=== PATIENT | female | born 1975 | race Hispanic/Latino ===

== ENCOUNTER 2018-04-15 14:54 | Emergency (ER) | payer SELFPAY ==
[2018-04-15] MEDS ORDERED: TETANUS & DIPHTHERIA TOX,ADULT 0.5 ML VIAL ONE (16:17)
[2018-04-15] MEDS ORDERED: BUPIVACAINE 0.5% PF 10 ML VIAL ONE (16:17)
[2018-04-15] MEDS ORDERED: LIDOCAINE 1% MPF 5 ML VIAL ONE (16:17)
--- NOTE | 2018-04-15 16:29 | RAD REPORT ---
EXAM DESCRIPTION: RAD -Hand Left 3 View - 04/15/2018 4:20 pm CLINICAL HISTORY: Left hand pain status post injury FINDINGS: No fracture or dislocation is seen. A radiopaque foreign body is not seen
--- NOTE | 2018-04-15 16:39 | EDPHYS ---
Physician Documentation [facility] Name: Felix Li Age: 42 yrs Sex: Female : 1975 Arrival Date: 04/15/2018 Time: 14:57 Bed Treatment Private MD: None, None ED Physician Fabian Jain HPI: 04/15 16:10 This 42 yrs old Female presents to ER via Ambulatory with complaints of cp Laceration - FINGER. 16:10 The patient or guardian reports injury, a laceration, irregular, avulsion of skin. The cp complaints affect the distal phalanx of left middle finger. 16:10 Context: The problem was sustained at home, resulted from use of knife. cp 16:10 Onset: The symptoms/episode began/occurred just prior to arrival. Associated signs and cp symptoms: Pertinent negatives: cyanosis distally, numbness distally. Severity of symptoms: in the emergency department the symptoms are unchanged, despite home interventions. 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 - Social history:: Smoking status: Patient/guardian denies using tobacco. - Ebola Screening: : Patient negative for fever greater than or equal to 101.5 degrees Fahrenheit, and additional compatible Ebola Virus Disease symptoms Patient denies exposure to infectious person Patient denies travel to an Ebola-affected area in the 21 days before illness onset No symptoms or risks identified at this time. ROS: 16:15 Constitutional: Negative for body aches, chills, fever, poor PO intake. cp 16:15 Eyes: Negative for injury, pain, redness, and discharge. cp 16:15 Cardiovascular: Negative for chest pain. 16:15 Respiratory: Negative for cough, shortness of breath. 16:15 Abdomen/GI: Negative for abdominal pain, nausea, vomiting, and diarrhea. 16:15 Skin: Positive for avulsion, of the partial tip of left middle finger. 16:15 Neuro: Negative for numbness, tingling. 16:15 All other systems are negative. Exam: 16:20 Constitutional: The patient appears in no acute distress, alert, awake, well developed, cp well nourished. 16:20 Head/Face: Normocephalic, atraumatic. cp 16:20 Eyes: Periorbital structures: appear normal, Conjunctiva: normal, no exudate, no injection, Lids and lashes: appear normal, bilaterally. 16:20 ENT: External ear(s): are unremarkable, Nose: is normal, Mouth: is normal, Posterior pharynx: is normal, airway is patent. 16:20 Chest/axilla: Inspection: normal. 16:20 Cardiovascular: Rate: normal. 16:20 Respiratory: the patient does not display signs of respiratory distress, Respirations: normal, no use of accessory muscles, no retractions, no splinting, no tachypnea. 16:20 Abdomen/GI: Exam negative for discomfort, distension, guarding, Inspection: abdomen appears normal. 16:20 Musculoskeletal/extremity: Tendon exam: specific tendon testing normal through active and passive range of motion 16:20 Skin: injury, avulsion(s), a small of the partial distal tip of left middle finger, that can be described as clean, irregular, with mild bleeding. 16:20 Neuro: Sensation: 2 point discrimination is normal. Vital Signs: 15:03 BP 133 / 85; Pulse 68; Resp 15; Temp 98.4; Pulse Ox 99% on R/A; Weight 63.5 kg; Height ch 5 ft. 2 in. (157.48 cm); Pain 6/10; 15:03 Body Mass Index 25.61 (63.50 kg, 157.48 cm) MDM: 16:00 Patient medically screened. cp 16:30 Differential diagnosis: open fracture, closed fracture, simple laceration, skin cp avulsion. Test interpretation: by ED physician or midlevel provider: plain radiologic studies. 16:37 Data reviewed: vital signs, nurses notes, radiologic studies, plain films. 04/15 16:08 Order name: XRAY Hand LEFT 3 View; Complete Time: 16:34 cp 04/15 16:34 Interpretation: Report reviewed. 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 Exp: ss 05/15/2020. Lot #: [id number]. } Route: IM; Site: right deltoid; 17:08 Follow up: Response: No adverse reaction ss 16:30 Drug: Lidocaine (1 %) 5 mg {Note: administered to affected area by KAREN Bruno, ss approx 2 mL.} Route: Infiltration; 16:30 Drug: Marcaine (0.5 %) 5 ml {Note: administered to affected area by KAREN Bruno, ss approx 2 mL.} Volume: 10 ml; Route: Infiltration; Disposition: 04/15/18 16:38 Discharged to Home. Impression: Laceration without foreign body of left middle finger with damage to nail. - Condition is Stable. - Discharge Instructions: Deep Skin Avulsion. - Prescriptions for Keflex 500 mg Oral Capsule - take 1 capsule by ORAL route every 8 hours for 10 days; 30 capsule. Tylenol- Codeine #3 300-30 mg Oral Tablet - take 2 tablets by ORAL route every 6 hours As needed; 10 tablet. - Work release form, Medication Reconciliation Form, Thank You Letter, Antibiotic Education, Prescription Opioid Use form. - Follow up: Private Physician; When: 48 Hours; Reason: Wound Recheck. - Problem is new. - Symptoms have improved. Addendum: 04/18/2018 10:12 Co-signature as Attending Physician, Fabian Jain MD I agree with the assessment and k dr plan of care. Signatures: Dispatcher [employer] EDMS Madyson Lorenz RN RN Fabian Jain MD MD [facility] Nadine Brown RN RN Zacarias Reid PA PA cp Corrections: (The following items were deleted from the chart) 04/15 17:14 16:38 04/15/2018 16:38 Discharged to Home. Impression: Laceration without foreign body ss of left middle finger with damage to nail. Condition is Stable. Forms are Medication Reconciliation Form, Thank You Letter, Antibiotic Education, Prescription Opioid Use. Follow up: Private Physician; When: 48 Hours; Reason: Wound Recheck. Problem is new. Symptoms have improved. cp
--- NOTE | 2018-04-15 16:39 | ER ---
Nurse's Notes [facility] Name: Felix Li Age: 42 yrs Sex: Female : 1975 Arrival Date: 04/15/2018 Time: 14:57 Bed Treatment Private MD: None, None Diagnosis: Laceration without foreign body of left middle finger with damage to nail Presentation: 04/15 15:03 Presenting complaint: Patient states: cut finger with a knife about 1400. Transition of care: patient was not received from another setting of care. Complicating Factors: There are no complicating factors for this patient. Onset of symptoms was April 15, 2018 at 14:00. Risk Assessment: Do you want to hurt yourself or someone else? Patient reports no desire to harm self or others. Initial Sepsis Screen: Does the patient meet any 2 criteria? No. Patient's initial sepsis screen is negative. Does the patient have a suspected source of infection? No. Patient's initial sepsis screen is negative. Care prior to arrival: None. 15:03 Method Of Arrival: Ambulatory 15:03 Acuity: ALBERT 5 Triage Assessment: 15:03 General: Appears in no apparent distress. comfortable, Behavior is calm, cooperative, ch appropriate for age. Pain: Complains of pain in palmar aspect of distal phalanx of left middle finger. 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 - Social history:: Smoking status: Patient/guardian denies using tobacco. - Ebola Screening: : Patient negative for fever greater than or equal to 101.5 degrees Fahrenheit, and additional compatible Ebola Virus Disease symptoms Patient denies exposure to infectious person Patient denies travel to an Ebola-affected area in the 21 days before illness onset No symptoms or risks identified at this time. Screenin:04 Abuse screen: Denies threats or abuse. Denies injuries from another. Nutritional ss screening: No deficits noted. Tuberculosis screening: Has had TB. Fall Risk None identified. Assessment: 16:04 General: Appears in no apparent distress. comfortable, Behavior is calm, cooperative. ss Pain: Complains of pain in left middle fingernail Pain currently is 6 out of 10 on a pain scale. Quality of pain is described as burning, tender, Pain began 1300 today Is continuous. Neuro: Level of Consciousness is awake, alert, obeys commands, Oriented to person, place, time, situation. Cardiovascular: Capillary refill < 3 seconds is brisk in bilateral fingers. Respiratory: Airway is patent Respiratory effort is even, unlabored, Respiratory pattern is regular, symmetrical. GI: No signs and/or symptoms were reported involving the gastrointestinal system. EENT: Nares are clear Oral mucosa is moist. Derm: Skin is pink, warm \T\ dry. Musculoskeletal: Circulation, motion, and sensation intact. Range of motion: intact in all extremities, Swelling absent. Injury Description: No bleeding noted at this time. Vital Signs: 15:03 BP 133 / 85; Pulse 68; Resp 15; Temp 98.4; Pulse Ox 99% on R/A; Weight 63.5 kg; Height ch 5 ft. 2 in. (157.48 cm); Pain 6/10; 15:03 Body Mass Index 25.61 (63.50 kg, 157.48 cm) ch ED Course: 14:57 Patient arrived in ED. sb2 14:58 None, None is Private Physician. sb2 15:03 Triage completed. ch 15:03 Arm band placed on left wrist. Patient placed in waiting room. ch 15:59 Zacarias Reid PA is PHCP. cp 15:59 Fabian Jain MD is Attending Physician. cp 16:04 Patient has correct armband on for positive identification. Call light in reach. ss 16:11 Nadine Brown, KRYSTINA is Primary Nurse. ss 16:19 X-ray completed. Portable x-ray completed in exam room. Patient tolerated procedure ml well. 16:20 XRAY Hand LEFT 3 View In Process Unspecified. EDMS 17:09 No provider procedures requiring assistance completed. Patient did not have IV access ss during this emergency room visit. irrigated wound to finger with 250 ml NS. Wound care: to avulsion located on left middle fingernail was cleaned with soap and water, irrigated with normal saline, dressed with 4X4s, Kerlix, Surgicel, Patient tolerated well. 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 Exp: ss 05/15/2020. Lot #: [id number]. } Route: IM; Site: right deltoid; 17:08 Follow up: Response: No adverse reaction 16:30 Drug: Lidocaine (1 %) 5 mg {Note: administered to affected area by KAREN Bruno, ss approx 2 mL.} Route: Infiltration; 16:30 Drug: Marcaine (0.5 %) 5 ml {Note: administered to affected area by KAREN Bruno, approx 2 mL.} Volume: 10 ml; Route: Infiltration; Outcome: 16:38 Discharge ordered by MD. manan 17:09 Discharged to home ambulatory, with family. 17:09 Condition: good 17:09 Discharge instructions given to patient, family, Instructed on discharge instructions, follow up and referral plans. medication usage, wound care, Demonstrated understanding of instructions, follow-up care, medications, wound care, Prescriptions given X 2. 17:14 Patient left the ED. Signatures: Dispatcher [employer] EDMS Madyson Lorenz, RN Magali Sorto ch, Shelby, RN RN ss Page, Corey, PA PA cp Billeau, Sheri sb2
== END 2018-04-15 17:14 | disposition home or self-care (01) ==
LOC: ER 14:54
DX: S61.313A Laceration without foreign body of left middle finger with damage to nail, initial encounter (principal); W26.0XXA Contact with knife, initial encounter; Y93.9 Activity, unspecified; Y92.009 Unspecified place in unspecified non-institutional (private) residence as the place of occurrence of the external cause; Z23 Encounter for immunization
CPT/HCPCS: 90714; 99284

== ENCOUNTER 2021-01-14 20:38 | Emergency (ER) | payer SELFPAY ==
--- OUTSIDE RECORDS SUMMARY | 2021-01-14 20:41 | XMS REPORT | Continuity of Care Document ---
:1975 Author Organization [facility] t Address [address] [place] [address] [address] [place] [address] Care Team Providers Name Role Phone Imani Bowman Attending Clinician Problems This patient has no known problems. Allergies, Adverse Reactions, Alerts This patient has no known allergies or adverse reactions. Medications This patient has no known medications. Procedures This patient has no known procedures. 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
[2021-01-14] MEDS ORDERED: LIDOCAINE 1% MPF 5 ML VIAL ONE (21:45)
[2021-01-14] MEDS ORDERED: TETANUS & DIPHTHERIA TOX,ADULT 0.5 ML VIAL ONE (21:54)
--- NOTE | 2021-01-14 22:05 | ER ---
Nurse's Notes [facility] Name: Felix Moreno Age: 45 yrs Sex: Female : 1975 Arrival Date: 01/14/2021 Time: 20:41 Bed 14 Private MD: Diagnosis: Laceration, Left Wrist Presentation: 01/14 21:02 Chief complaint: Patient states: Pt was reaching into kitchen cabinet and accidently vg1 cut Left Wrist with the blade of a supervisor matrix, occurred about 30 minutes ago. Pt states left fifth digit feels numb. Pt wrist bandaged in triage. Bleeding controlled. Chief complaint:. Chief complaint:. Coronavirus screen: Client denies travel out of the [place] in the last 14 days. Ebola Screen: Patient negative for fever greater than or equal to 101.5 degrees Fahrenheit, and additional compatible Ebola Virus Disease symptoms. Initial Sepsis Screen: Does the patient meet any 2 criteria? No. Patient's initial sepsis screen is negative. Does the patient have a suspected source of infection? No. Patient's initial sepsis screen is negative. Risk Assessment: Do you want to hurt yourself or someone else? Patient reports no desire to harm self or others. Onset of symptoms was January 14, 2021. 21:02 Method Of Arrival: Ambulatory vg1 21:02 Acuity: ALBERT 3 vg1 22:21 Complicating Factors: There are no complicating factors for this patient. [facility] Triage Assessment: 21:06 General: Appears in no apparent distress. comfortable, Behavior is calm, cooperative. vg1 Pain: Denies pain. Cardiovascular: Capillary refill < 3 seconds in left fingers. Injury Description: Laceration sustained to palmar aspect of left wrist is. 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 - Social history:: Smoking status: Patient denies any tobacco usage or history of. Screenin:40 Abuse screen: Denies threats or abuse. Denies injuries from another. [facility] 21:40 Nutritional screening: No deficits noted. Tuberculosis screening: No symptoms or risk jm8 factors identified. Fall Risk None identified. Assessment: 21:40 General: Appears in no apparent distress. comfortable, Behavior is calm, cooperative, jm8 appropriate for age. Pain: Denies pain. Neuro: No deficits noted. Level of Consciousness is awake, alert, obeys commands, Oriented to person, place, time. Cardiovascular: No deficits noted. Respiratory: No deficits noted. Airway is patent Trachea midline Respiratory effort is even, unlabored. GI: No deficits noted. No signs and/or symptoms were reported involving the gastrointestinal system. : No deficits noted. No signs and/or symptoms were reported regarding the genitourinary system. EENT: No deficits noted. No signs and/or symptoms were reported regarding the EENT system. Derm: No deficits noted. No signs and/or symptoms reported regarding the dermatologic system. Musculoskeletal: No deficits noted. Injury Description: Laceration sustained to left wrist is clean, was sustained 30-60 minutes ago. is bleeding a small amount. Vital Signs: 21:02 BP 141 / 103; Pulse 90; Resp 16; Temp 97.5; Pulse Ox 100% ; Weight 64.86 kg; Height 4 vg1 ft. 11 in. (149.86 cm); Pain 0/10; 22:22 BP 124 / 85; Pulse 84; Resp 16; Pulse Ox 99% on R/A; jm8 21:02 Body Mass Index 28.88 (64.86 kg, 149.86 cm) 1 ED Course: 20:41 Patient arrived in ED. mr 21:05 Triage completed. vg1 21:06 Arm band placed on. vg1 21:13 Pedro Pablo Puente MD is Attending Physician. health system 21:40 Patient did not have IV access during this emergency room visit. 8 21:40 Assist provider with laceration repair on left wrist that was between 2.6 to 7.5 cm 8 using sutures. Set up tray. Performed by Pedro Pablo Puente MD Dressed with 4X4s, Neosporin, Patient tolerated well. 22:03 Joel Baugh MD is Referral Physician. health system 22:21 Patient has correct armband on for positive identification. Bed in low position. Call jm8 light in reach. Side rails up X2. Administered Medications: 21:28 CANCELLED (Duplicate Order): Tetanus-Diphtheria Toxoid Adult 0.5 ml IM once health system 21:36 Drug: Lidocaine (1 %) 5 mg Route: Infiltration; 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 Exp: jm8 09/11/2021. Lot #: [id number]. } Route: IM; Site: right deltoid; 22:22 Follow up: Response: No adverse reaction [facility] 22:14 Drug: Bacitracin Ointment (500 unit/g) 1 application Route: Topical; Site: wound; [facility] Outcome: 22:04 Discharge ordered by . health system 22:21 Discharged to home ambulatory. [facility] 22:21 Condition: good 22:21 Discharge instructions given to patient, Instructed on discharge instructions, follow up and referral plans. wound care, Demonstrated understanding of instructions, follow-up care, wound care. 22:23 Patient [address] the ED. [facility] Signatures: Bela Jeronimo Victoria RN RN vg1 Pedro Pablo Puente MD MD health system Lukasz Reddy RN RN [facility]
--- NOTE | 2021-01-14 22:05 | EDPHYS ---
Physician Documentation [facility] Name: Felix Moreno Age: 45 yrs Sex: Female : 1975 Arrival Date: 01/14/2021 Time: 20:41 Bed 14 Private MD: ED Physician Pedro Pablo Puente HPI: 01/14 21:55 This 45 yrs old Female presents to ER via Ambulatory with complaints of mh7 Laceration To Arm. 21:55 The patient has a laceration related to: cooking, from a sharp metal object, occurred mh7 at home, and there are no complicating factors. The injury was accidental. The laceration(s) is(are) located on the palmar aspect of left wrist, medial aspect. Onset: The symptoms/episode began/occurred just prior to arrival, today. Associated signs and symptoms: Pertinent positives: numbness distal to injury, 5 th finger, Pertinent negatives: deformity, dizziness, heavy bleeding, loss of consciousness, suspected foreign body. 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 - Social history:: Smoking status: Patient denies any tobacco usage or history of. ROS: 21:55 Constitutional: Negative for fever, chills, and weight loss, Eyes: Negative for injury, mh7 pain, redness, and discharge, ENT: Negative for injury, pain, and discharge, Neck: Negative for injury, pain, and swelling, Cardiovascular: Negative for chest pain, palpitations, and edema, Respiratory: Negative for shortness of breath, cough, wheezing, and pleuritic chest pain, Abdomen/GI: Negative for abdominal pain, nausea, vomiting, diarrhea, and constipation, Back: Negative for injury and pain, : Negative for injury, bleeding, discharge, and swelling, Psych: Negative for depression, anxiety, suicide ideation, homicidal ideation, and hallucinations, Allergy/Immunology: Negative for hives, rash, and allergies, Endocrine: Negative for neck swelling, polydipsia, polyuria, polyphagia, and marked weight changes, Hematologic/Lymphatic: Negative for swollen nodes, abnormal bleeding, and unusual bruising. Exam: 21:55 Constitutional: This is a well developed, well nourished patient who is awake, alert, mh7 and in no acute distress. 21:55 Neuro: Awake and alert, GCS 15, oriented to person, place, time, and situation. Cranial nerves II-XII grossly intact. Motor strength 5/5 in all extremities. Sensory grossly intact. Cerebellar exam normal. Normal gait. Psych: Awake, alert, with orientation to person, place and time. Behavior, mood, and affect are within normal limits. 21:55 Musculoskeletal/extremity: Extremities: noted in the palmar aspect of left wrist: laceration, ROM: intact in all extremities, Circulation is intact in all extremities. Pulses: are normal with no appreciated deficits, Perfusion: the patient is normally perfused throughout, Perfusion: the extremity is normally perfused throughout, decreased sensation, Joints: All joints appear normal with full range of motion. Tendon exam: specific tendon testing normal through active and passive range of motion mild decreased sensation left hand 5 th digit, sharp intact. 21:55 Skin: injury, laceration(s), the wound is approximately 3.5 cm(s), with a depth of 0.5 cm(s), of the palmar aspect of left wrist, medial aspect, that can be described as clean, no foreign body, linear, without bleeding. Vital Signs: 21:02 BP 141 / 103; Pulse 90; Resp 16; Temp 97.5; Pulse Ox 100% ; Weight 64.86 kg; Height 4 vg1 ft. 11 in. (149.86 cm); Pain 0/10; 22:22 BP 124 / 85; Pulse 84; Resp 16; Pulse Ox 99% on R/A; jm8 21:02 Body Mass Index 28.88 (64.86 kg, 149.86 cm) vg1 Laceration: 21:55 Wound Repair of 3.5cm ( 1.4in ) subcutaneous laceration to palmar aspect of left wrist. mh7 Linear shaped.. Distal neuro/vascular/tendon intact. Anesthesia: Local anesthetic administered with 4 mls of 1% lidocaine. Wound prep: Extensive cleansing with hibiclenz by nurse, Wound irrigation with saline by me, Wound explored extensively, Copious irrigation. Skin closed with 7 4-0 Prolene using simple sutures and sterile technique. Dressed with Bacitracin, non-adherent dressing. Patient tolerated well. MDM: 21:55 Differential diagnosis: superficial laceration, tendon injury, vascular injury. Data [facility] reviewed: vital signs, nurses notes. Data interpreted: Pulse oximetry: on room air is 100 %. Interpretation: normal. Counseling: I had a detailed discussion with the patient and/or guardian regarding: the historical points, exam findings, and any diagnostic results supporting the discharge/admit diagnosis, the presence of at least one elevated blood pressure reading (>120/80) during this emergency department visit, the need for outpatient follow up, a hand specialist, to return to the emergency department if symptoms worsen or persist or if there are any questions or concerns that arise at home. Response to treatment: the patient's symptoms have markedly improved after treatment. 22:04 Patient medically screened. [facility] 01/14 22:05 Order name: Dressing - Wound; Complete Time: 22:08 [facility] Administered Medications: 21:28 CANCELLED (Duplicate Order): Tetanus-Diphtheria Toxoid Adult 0.5 ml IM once [facility] 21:36 Drug: Lidocaine (1 %) 5 mg Route: Infiltration; [facility] 21:41 Drug: Tetanus-Diphtheria Toxoid Adult 0.5 ml {[employer]: [employer]. Exp: jm8 09/11/2021. Lot #: [id number]. } Route: IM; Site: right deltoid; 22:22 Follow up: Response: No adverse reaction [facility] 22:14 Drug: Bacitracin Ointment (500 unit/g) 1 application Route: Topical; Site: wound; [facility] Disposition: 01/14/21 22:04 Discharged to Home. Impression: Laceration, Left Wrist. - Condition is Stable. - Medication Reconciliation Form, Thank You Letter, Antibiotic Education, Prescription Opioid Use form. - Follow up: Private Physician; When: 1 - 2 days; Reason: Worsening of condition, Recheck today's complaints, Continuance of care, Re-evaluation by your physician. Follow up: Joel Baugh MD; When: 1 - 2 days; Reason: Worsening of condition, Recheck today's complaints. Follow up: Emergency Department; When: 48 Hours; Reason: Wound Recheck, Worsening of condition. - Problem is new. - Symptoms have improved. Signatures: Ewa Vigil RN RN vg1 Pedro Pablo Puente MD MD 7 Lukasz Reddy RN RN jm8 Corrections: (The following items were deleted from the chart) 21:28 21:28 Tetanus-Diphtheria Toxoid Adult 0.5 ml IM once ordered. mh7 mh7 22:23 22:04 01/14/2021 22:04 Discharged to Home. Impression: Laceration, Left Wrist. jm8 Condition is Stable. Forms are Medication Reconciliation Form, Thank You Letter, Antibiotic Education, Prescription Opioid Use. Follow up: Private Physician; When: 1 - 2 days; Reason: Worsening of condition, Recheck today's complaints, Continuance of care, Re-evaluation by your physician. Follow up: Joel Baugh; When: 1 - 2 days; Reason: Worsening of condition, Recheck today's complaints. Follow up: Emergency Department; When: 48 Hours; Reason: Wound Recheck, Worsening of condition. Problem is new. Symptoms have improved. mh7
[2021-01-14 22:52] VITALS: TEMP 97.5
[2021-01-14 22:54] VITALS: BP 124/85; O2SAT 99
== END 2021-01-14 22:23 | disposition home or self-care (01) ==
LOC: ER 20:38
PROC: 0JQH0ZZ Repair Left Lower Arm Subcutaneous Tissue and Fascia, Open Approach (ICD-10-PCS; principal; 2021-01-14)
DX: S61.512A Laceration without foreign body of left wrist, initial encounter (principal); W26.9XXA Contact with unspecified sharp object(s), initial encounter; Y93.G3 Activity, cooking and baking; Y92.000 Kitchen of unspecified non-institutional (private) residence as the place of occurrence of the external cause; Z23 Encounter for immunization
CPT/HCPCS: 90471; 90714; 99283

== ENCOUNTER 2021-01-27 17:21 | Emergency (ER) | payer SELFPAY ==
--- OUTSIDE RECORDS SUMMARY | 2021-01-27 17:24 | XMS REPORT | Continuity of Care Document ---
:1975 Author Organization [facility] t Address [address] [place] [address] Care Team Providers Name Role Phone Imani Bowman Attending Clinician [phone] Problems This patient has no known problems. Allergies, Adverse Reactions, Alerts This patient has no known allergies or adverse reactions. Medications This patient has no known medications. Procedures This patient has no known procedures. Encounters Start End Encounter Admission Attending Care Care Encounter Source Date/Time Date/Time Type Type Clinicians Facility Department ID 2020-06-08 2020-06-08 Office Lopez [facility] [id number] 10:18:37 10:59:16 Visit Imani Bah [facility] [id number] [facility] [id number] MATERNAL [id number] & CHILD [address] [place] [address] Results This patient has no known results.
--- NOTE | 2021-01-27 19:38 | EDPHYS ---
Physician Documentation [facility] Name: Felix Moreno Age: 45 yrs Sex: Female : 1975 Arrival Date: 01/27/2021 Time: 17:23 Bed 26 Private MD: ED Physician David Davis HPI: 01/27 19:18 This 45 yrs old Female presents to ER via Ambulatory with complaints of Suture pkl Recheck, Arm Swelling. 19:18 Patient presents to ED for recheck of: laceration. The affected area is on the left pkl forearm. Previous treatment: The patient was initially treated on January 17, 2021. Patient complained of mild swelling left forearm and elbow few days ago. Swelling has improved today. Also complained of mild tingling and burning sensation distal to laceration and left 5 th finger.. 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 - Social history:: Smoking status: Patient denies any tobacco usage or history of. ROS: 19:18 Eyes: Negative for injury, pain, redness, and discharge, ENT: Negative for injury, pkl pain, and discharge, Neck: Negative for injury, pain, and swelling, Cardiovascular: Negative for chest pain, palpitations, and edema, Respiratory: Negative for shortness of breath, cough, wheezing, and pleuritic chest pain, Abdomen/GI: Negative for abdominal pain, nausea, vomiting, diarrhea, and constipation, Back: Negative for injury and pain, : Negative for injury, bleeding, discharge, and swelling. 19:18 MS/extremity: Positive for paresthesias, of the distal to laceration and left 5 th finger. 19:18 Skin: Negative for rash. 19:18 Neuro: Positive for numbness, tingling, of the distal to laceration and left 5 th finger. Exam: 19:18 Head/Face: Normocephalic, atraumatic. Eyes: Pupils equal round and reactive to light, pkl extra-ocular motions intact. Lids and lashes normal. Conjunctiva and sclera are non-icteric and not injected. Cornea within normal limits. Periorbital areas with no swelling, redness, or edema. ENT: Nares patent. No nasal discharge, no septal abnormalities noted. Tympanic membranes are normal and external auditory canals are clear. Oropharynx with no redness, swelling, or masses, exudates, or evidence of obstruction, uvula midline. Mucous membranes moist. Neck: Trachea midline, no thyromegaly or masses palpated, and no cervical lymphadenopathy. Supple, full range of motion without nuchal rigidity, or vertebral point tenderness. No Meningismus. Chest/axilla: Normal chest wall appearance and motion. Nontender with no deformity. No lesions are appreciated. Cardiovascular: Regular rate and rhythm with a normal S1 and S2. No gallops, murmurs, or rubs. Normal PMI, no JVD. No pulse deficits. Respiratory: Lungs have equal breath sounds bilaterally, clear to auscultation and percussion. No rales, rhonchi or wheezes noted. No increased work of breathing, no retractions or nasal flaring. Abdomen/GI: Soft, non-tender, with normal bowel sounds. No distension or tympany. No guarding or rebound. No evidence of tenderness throughout. Back: No spinal tenderness. No costovertebral tenderness. Full range of motion. Skin: Warm, dry with normal turgor. Normal color with no rashes, no lesions, and no evidence of cellulitis. 19:18 Musculoskeletal/extremity: Extremities: grossly normal except: noted in the left forearm and left 5 th finger: paresthesia distal to laceration and left 5 th finger. Vital Signs: 17:48 BP 125 / 75; Pulse 76; Resp 16; Temp 98.8; Pulse Ox 100% ; Weight 64.86 kg; Pain 3/10; jl7 Procedures: 19:37 Sutures removal by nurse. pkl MDM: 19:10 Patient medically screened. pkl 19:18 Data reviewed: vital signs, nurses notes. ED course: Discussed possible nerve injury ( pkl laceration ) from laceration ( 01/17/21 ). Advised patient to follow up with Plastic surgeon or Hand surgeon at [facility] outpatient clinic for further evaluation next week. Patient understood instructions. 01/27 19:40 Order name: Suture Removal; Complete Time: 19:48 pkl Administered Medications: No medications were administered Disposition: 01/27/21 19:37 Discharged to Home. Impression: Laceration left forearm. Possible laceration Ulnar nerve . - Condition is Stable. - Medication Reconciliation Form, Thank You Letter, Antibiotic Education, Prescription Opioid Use form. - Follow up: Private Physician; When: 1 week; Reason: Re-evaluation by your physician. - Problem is new. - Symptoms have improved. Signatures: David Davis MD MD pkl Ila Espinosa RN RN iw Laney Herring RN RN jl7 Corrections: (The following items were deleted from the chart) 19:50 19:37 01/27/2021 19:37 Discharged to Home. Impression: Laceration left forearm. iw Possible laceration Ulnar nerve . Condition is Stable. Forms are Medication Reconciliation Form, Thank You Letter, Antibiotic Education, Prescription Opioid Use. Follow up: Private Physician; When: 1 week; Reason: Re-evaluation by your physician. Problem is new. Symptoms have improved. pkl
--- NOTE | 2021-01-27 19:38 | ER ---
Nurse's Notes [facility] Name: Felix Moreno Age: 45 yrs Sex: Female : 1975 Arrival Date: 01/27/2021 Time: 17:23 Bed 26 Private MD: Diagnosis: Laceration left forearm. Possible laceration Ulnar nerve Presentation: 01/27 17:48 Chief complaint: Patient states: Sutures to left lateral wrist on January 17 and earlier jl7 had swelling up to elbow. Coronavirus screen: Client denies travel out of the [place] in the last 14 days. At this time, the client does not indicate any symptoms associated with coronavirus-19. Ebola Screen: No symptoms or risks identified at this time. Initial Sepsis Screen: Does the patient meet any 2 criteria? No. Patient's initial sepsis screen is negative. Does the patient have a suspected source of infection? No. Patient's initial sepsis screen is negative. Risk Assessment: Do you want to hurt yourself or someone else? Patient reports no desire to harm self or others. Onset of symptoms was January 27, 2021. Care prior to arrival: None. 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 - Social history:: Smoking status: Patient denies any tobacco usage or history of. Vital Signs: 17:48 BP 125 / 75; Pulse 76; Resp 16; Temp 98.8; Pulse Ox 100% ; Weight 64.86 kg; Pain 3/10; jl7 ED Course: 17:23 Patient arrived in ED. as 17:51 Triage completed. jl7 17:51 Arm band placed on right wrist. jl7 19:10 David Davis MD is Attending Physician. pkl 19:48 Ila Espinosa, RN is Primary Nurse. iw Administered Medications: No medications were administered Outcome: 19:37 Discharge ordered by . pkl 19:50 Patient left the ED. iw Signatures: David Davis MD MD pkl Martinez, Amelia as Williams, Irene, RN RN Laney Mcclain RN RN jl7
[2021-01-27 19:57] VITALS: BP 125/75; TEMP 98.8; O2SAT 100
== END 2021-01-27 19:50 | disposition home or self-care (01) ==
LOC: ER 17:21
DX: S51.812D Laceration without foreign body of left forearm, subsequent encounter (principal)
CPT/HCPCS: 99281